=== PATIENT | female | born 1990 | race Caucasian/White ===

== ENCOUNTER 2021-11-06 09:50 | Outpatient (CLI) | payer BC, SELFPAY | END 2021-11-06 09:51 | disposition home or self-care (01) | LOC: NFLDREF 11-12 12:36 | PROVIDERS: Visit Provider Registered Nurse | DX: N39.0 Urinary tract infection, site not specified (principal); R50.9 Fever, unspecified; J18.9 Pneumonia, unspecified organism | CPT/HCPCS: 87086; 87186 ==

== ENCOUNTER 2021-11-08 18:49 | Emergency (ER) | payer BC, SELFPAY ==
[2021-11-08 19:05] VITALS: BP 132/78; PULSE 103; RESP 18; TEMP 36.7; O2SAT 99; BMI 27.4
--- NOTE | 2021-11-08 19:19 | ED_ITS ---
HPI - General Adult General Time Seen by Provider: 19:19 Date Seen: 11/08/21 Chief complaint: Unspecified Complaint, Adult Stated complaint: Pneumonia/UTI/White Blood Count Time Seen by Provider: 11/08/21 19:14 Source: patient Mode of arrival: ambulatory Limitations: no limitations History of Present Illness HPI narrative: Brittanie is a 30-year-old female with no past medical history presents emergency department via private car with questionable urinary tract infection and pneumonia. Seen in urgent care on Monday for fever off sinus pressure headache and urinary frequency this has been present for over 2 weeks, she was treated originally with prednisone for her laryngitis and upper respiratory infection. She recently developed a fever prior to going to Urgent Care, she has been taking Tylenol which has helped relieve some of the sinus pressure and fever. She has had body aches. She has a history significant for that up, no chance of she has a Nexplanon in her right arm. She was prescribed doxycycline 100 mg twice daily, chest x-ray done in urgent care was negative, she had an elevated white blood cell count of 17 urine culture was noted to have gram-negative rods, :, she was given 1 g ceftriaxone IM for her UTI, patient continues to feel weak. She took 3 doses of doxycycline and felt is that her headache got worse and she had some chest tightness, this has resolved. She has not taken any doxycycline today, plan was for her to get her antibiotics changed, they told her to come to the emergency department. She denies any jd sea vomiting, she denies any chest pain or shortness of breath, she has not had any abdominal pain or diarrhea she denies any back pain. She has had increased urinary frequency, she denies any burning sensation or blood in the urine, she has had a history of uti's in the past, her last antibiotic she use was macrobid. She continues to have the dry cough, she did not get anything for the cough at urgent care. She had a negative COVID test on Monday. Her oral intake has decreased. No other concerns. Related Data Previous Rx's Medication Instructions Recorded doxycycline hyclate 100 mg capsule 100 mg PO BID 5 days #10 caps 11/06/21 benzonatate 100 mg capsule 100 mg PO TID 5 days #15 caps 11/08/21 cefdinir 300 mg capsule 300 mg PO BID 7 days #14 caps 11/08/21 Allergies Allergy/AdvReac Type Severity Reaction Status Date / Time ciprofloxacin Allergy Mild Chest Pain Verified 11/06/21 09:24 amoxicillin Allergy Unknown Verified 11/06/21 09:05 Penicillins Allergy Unknown Verified 11/06/21 09:05 Review of Systems Status of ROS: Reports: 10 or more systems reviewed and unremarkable except as noted in History and below [facility] Medical History Laryngitis URI (upper respiratory infection) Social History Smoking Status: Never smoker Exam Narrative: Exam Narrative: General: NAD, sitting comfortably, non toxic in appearance. HEENT: TM normal bilaterally. PERRL, EOMI Neck: supple FROM, no meningeal signs Lungs: CTAB/L Heart: NSR, S1S2 Abdomen: soft, non tender, BS present. No CVA tenderness Musculoskeletal: +5 upper and lower extremities, no joint swelling. Neuro: AAOX3, gait within normal limits. Const: Vital Signs, click to edit/add: Vital Signs - 24 hr 11/08/21 19:05 Temperature 98.0 F Pulse Rate [Right Pulse Oximeter] 103 H Respiratory Rate 18 Blood Pressure [Ri ght Upper Arm] 132/78 Pulse Oximetry 99 Oxygen Delivery Me thod Room Air Course Course Hospital Course: 7:30 PM: AIDET performed. Vitals show mild tachycardia, she is afebrile. Workup will include IV peripheral, 0.9 normal saline bolus, 30 mg IV Toradol for her headache and body aches, albuterol inhaler 2 puffs for her cough, 200 mg Tessalon Perle capsule. Will repeat labs including urinalysis, covid swab, CBC, CMP and lactate, will not repeat chest x-ray, previous one was negative for any consolidation or infiltrate, likely give her a dose ceftriaxone 1 g IV and treat with Omnicef 300 mg twice daily over the next 7-10 days. Reevaluation(s) Reevaluation #1: Due to shift change transfer of care was given to Dr. Chandler pending lab results. Please see his note for disposition and plan. Time: 20:13 Vital Signs Vital signs: Initial Vital Signs Temperature 98.0 F 11/08/21 19:05 Temperature Source Temporal Artery Scan 11/08/21 19:05 Pulse Rate 103 H 11/08/21 19:05 Respiratory Rate 18 11/08/21 19:05 Blood Pressure 132/78 11/08/21 19:05 Blood Pressure Mean 96 11/08/21 19:05 Blood Pressure Position Sitting 11/08/21 19:05 Pulse Oximetry 99 11/08/21 19:05 Oxygen Delivery Method 11/08/21 19:05 Vital Signs Temperature 98.0 F 11/08/21 19:05 Pulse Rate 103 H 11/08/21 19:05 Respiratory Rate 18 11/08/21 19:05 Blood Pressure 132/78 11/08/21 19:05 Pulse Oximetry 99 11/08/21 19:05 Oxygen Delivery Method 11/08/21 19:05 Temperature 98.0 F 11/08/21 19:05 Pulse Rate 103 H 11/08/21 19:05 Respiratory Rate 18 11/08/21 19:05 Blood Pressure 132/78 11/08/21 19:05 Pulse Oximetry 99 11/08/21 19:05 Oxygen Delivery Method 11/08/21 19:05 Discharge Plan Discharge Clinical Impression: Urinary tract infection, URI (upper respiratory infection) Patient Disposition: Home, Self-Care Instructions: Urinary Tract Infection in Women (ED), Upper Respiratory Infection (ED) Additional Instructions: To take Omnicef 300 mg twice daily for the next 7 days, Tessalon pearls for cough, 100 mg three times daily for five days. Albuterol inhaler 1-2 puffs every 4 hours for cough. To follow up with primary care provider in the next 5-7 days. Activity Level: Activity as Tolerated Prescriptions: New cefdinir 300 mg capsule 300 mg PO BID 7 Days Qty: 14 0RF benzonatate 100 mg capsule 100 mg PO TID 5 Days Qty: 15 0RF No Action doxycycline hyclate 100 mg capsule 100 mg PO BID 5 Days Qty: 10 0RF Follow Up/Referrals: Provider,Not a Local [Primary Care Provider] - Stand Alone Forms: [facility] Info Instructions
[2021-11-08] MEDS: KETOROLAC 30 MG/ML inj IVP (20:11)
[2021-11-08] MEDS: 0.9 % SODIUM CHLORIDE 1000 ml 1,000 ML IV (20:13)
[2021-11-08] MEDS: cefTRIAXone 1 GM in 0.9 % SODIUM CHLORIDE Mini-bag 100 ML IVPB (20:14)
[2021-11-08] MEDS: ALBUTEROL INHALER 2 PUFF IH (20:14)
[2021-11-08] MEDS: BENZONATATE 100 MG CAPSULE 200 MG PO (20:14)
[2021-11-08 20:28] LABS: Appearance Urine Clear (Clear); Bilirubin Urine Negative (Negative); Blood Urine Trace-lysed (Negative); Color Urine Yellow (Yellow); Glucose Urine Negative (Negative); Ketones Urine Negative (Negative); Leukocyte Esterase Urine Negative (Negative); Nitrite Urine Negative (Negative); Protein Urine 1+ (Negative); Specific Gravity Urine >= 1.030 (1.000-1.030); Urobilinogen Urine 0.2 (0.2-1.0)
[2021-11-08 20:32] LABS: Ur HCG Qualitative* Negative (Negative)
[2021-11-08 20:32] LABS: Lactate* 1.1 mmol/L (0.5-1.9)
[2021-11-08 20:46] LABS: Basophils Absolute Auto 0.04 K/uL (0.00-0.30); Basophils Percent Auto 0.4 % (0.0-3.0); Eosinophils Absolute Auto 0.08 K/uL (0.00-0.50); Eosinophils Percent Auto 0.8 % (0.0-7.0); Hematocrit 41.5 % (33.0-51.0); Hemoglobin* 13.6 gm/dL (12.0-16.0); Immature Granulocytes Abs Auto 0.02 K/uL (0.00-0.30); Lymphocytes Absolute Auto 3.95 K/uL (0.90-2.90); Lymphocytes Percent Auto 39.5 % (20-44); Mean Corpuscular HGB Conc 33 gm/dL (32-36); Mean Corpuscular Hemoglobin 29 pg (26-34); Mean Corpuscular Volume 89 fL (80-100); Monocytes Percent Auto 8.4 % (0.0-11.0); Neutrophils Absolute Auto 5.08 K/uL (1.7-7.0); Neutrophils Percent Auto 50.7 % (42.0-72.0); Platelet Count* 292 K/uL (140-440); RDW Coefficient of Variation % 12.8 % (11.5-15.5); Red Blood Count 4.66 m/uL (4.00-5.20); White Blood Count* 10.01 K/uL (4.50-11.00)
[2021-11-08 20:48] LABS: Albumin* 4.2 g/dL (3.3-5.0); Chloride* 106 mmol/L (96-114); Potassium* 3.8 mmol/L (3.6-5.1); Sodium* 142 mmol/L (135-149)
[2021-11-08 20:48] LABS: Bacteria Urine Few; Hyaline Casts Urine Moderate (None-Few); Squamous Epithelial Cell Urine Moderate (None-Few)
[2021-11-08 20:49] LABS: Slide Review Reflex No
[2021-11-08 21:16] LABS: PCR FLU A Negative PCR FLU A (Negative); PCR FLU B Negative PCR FLU B (Negative); PCR RSV Negative PCR RSV (Negative)
[2021-11-08 21:23] LABS: Alanine Aminotransferase* 46 U/L (4-35); Alkaline Phosphatase* 106 U/L (40-150); Aspartate Amino Transferase* 38 U/L (12-35); Bilirubin Total* 0.3 mg/dL (0.1-1.5); Blood Urea Nitrogen* 13 mg/dL (5-24); Calcium* 9.3 mg/dL (8.4-10.6); Carbon Dioxide* 28 mmol/L (20-32); Creatinine* 0.7 mg/dL (0.5-1.5); Est. Creatinine Clearance* 113.24; Estimated Glomerular Filt Rate 119 ml/min; Glucose* 109 mg/dL (60-115); Total Protein* 8.4 g/dL (6.0-8.3)
[2021-11-08 22:42] LABS: SARS PCR* Negative SARS-CoV-2 (Negative)
== END 2021-11-08 22:38 | disposition home or self-care (01) ==
PROVIDERS: Emergency Provider Student in an Organized Health Care Education/Training Program
DX: J06.9 Acute upper respiratory infection, unspecified (principal); N39.0 Urinary tract infection, site not specified
CPT/HCPCS: 36415; 80053; 81003; 81015; 81025; 83605; 84703; 85025; 87086; 87502; 87634; 87635; 96365; 96375; 99283; 99284; A9270; J0696; J1885; J7030

== ENCOUNTER 2022-10-09 12:21 | Outpatient (CLI) | payer BC, SELFPAY | END 2022-10-09 12:22 | disposition home or self-care (01) | LOC: NFLDREF 10-10 09:18 | PROVIDERS: PCP Family Medicine; Referring Provider Family Medicine; Visit Provider Registered Nurse | DX: N39.0 Urinary tract infection, site not specified (principal); R35.89 Other polyuria; G43.909 Migraine, unspecified, not intractable, without status migrainosus | CPT/HCPCS: 87086; 87186 ==